=== PATIENT | male | born 1995 | race Hispanic/Latino ===

== ENCOUNTER 2023-12-02 12:13 | Inpatient (IN) | payer SELFPAY ==
[2023-12-02] VITALS (9 sets, daily range): BP systolic 104–131; BP diastolic 65–76
[~2023-12-02] VITALS: Ht 167.6 cm; Wt 74.4 kg
[~2023-12-02 12:13] MED LIST: SEVOFLURANE 250 ML BTL INH ONE
[2023-12-02] MEDS ORDERED: SODIUM CHLORIDE 0.9% 1,000 ML IV PRN (13:45)
[2023-12-02] MEDS ORDERED: KETOROLAC TROMETHAMINE 30 MG/ML VIAL IV ONE (13:45)
[2023-12-02] MEDS ORDERED: ondansetron HCL 4 MG/2 ML VIAL IV ONE (13:45)
[2023-12-02 13:59] LABS: BASOPHILS 0.5 % (0-2); HEMATOCRIT 44.1 % (35.0-50.0); HEMOGLOBIN 15.3 g/dL (12.0-18.0); LYMPHOCYTES 6.4 % (24-44); MCH 30.6 (27-36); MCHC 34.6 g/dl (30-36); MCV 88.4 fl (81-99); MONOCYTES 7.1 % (0-12); PLATELET COUNT 258 K/uL (140-440); RBC 4.99 M/ul (4.3-5.7); RDW 14.2 (10.5-15.0)
[2023-12-02 14:10] LABS: ALBUMIN/GLOBULIN RATIO 0.93 (1.1-2.4); ANION GAP 13.2 (7-21); BILIRUBIN, TOTAL 0.9 ng/dL (0.2-1.0); BUN/CREATININE RATIO 10.52 (6.0-28.6); CALCIUM 9.2 mg/dL (8.5-10.1); CREATININE, SERUM 0.95 mg/dL (0.70-1.30); POTASSIUM 3.2 mmol/L (3.5-5.1); PROTEIN, TOTAL 8.3 g/dL (6.4-8.2)
[2023-12-02] MEDS ORDERED: ondansetron HCL 4 MG/2 ML VIAL IV PRN ×3 (15:30→18:45)
[2023-12-02] MEDS ORDERED: HYDROmorphone HCL 1 MG/ML SYR IV PRN ×2 (15:30→17:00)
[2023-12-02] MEDS ORDERED: PIPERACILLIN/TAZOBACTAM 3.375 GM in DEXTROSE 5% 100 ML IV ONE (15:30)
[2023-12-02] MEDS ORDERED: LACTATED RINGER'S 1,000 ML IV SCH (15:30)
--- NOTE | 2023-12-02 16:20 | NUR ---
PT ARRIVED TO MS ROOM 114 VIA STRETCHER. PT ABLE TO WALK TO BED WITHOUT DIFFICULTY. INTERPRETOR USED FOR ADMISSION ASSESSMENT. BOSS AT BEDSIDE. PT RATES RLQ PAIN 5/10, TOLERABLE. REFUSED MEDICATION. ORIENTED TO CALL LIGHT. ABD TENDER, ACTIVE IN ALL QUADRANTS.
[2023-12-02] MEDS ORDERED: ENOXAPARIN SODIUM 40 MG/0.4 ML SYR SUB-Q SCH (16:50)
[2023-12-02] MEDS ORDERED: PANTOPRAZOLE SODIUM 40 MG/10 ML VIAL IV SCH (16:50)
[2023-12-02] MEDS ORDERED: PROCHLORPERAZINE EDISYLATE 10 MG/2 ML VIAL IV PRN ×2 (17:00→18:45)
[2023-12-02] MEDS ORDERED: DEXTROSE 5% - LACTATED RINGERS 1,000 ML IV SCH (17:00)
[2023-12-02] MEDS ORDERED: HYDROCODONE/ACETA 5/325 TAB PO PRN (17:00)
[2023-12-02] MEDS ORDERED: SUCCINYLCHOLINE IN 0.9% NACL 200 MG/10 ML SYRINGE ONE ×2 (17:18→18:57)
[2023-12-02] MEDS ORDERED: DEXAMETHASONE SOD PHOS 4 MG/ML VIAL ONE (17:18)
[2023-12-02] MEDS ORDERED: LACTATED RINGER'S 1,000 ML IV ONE ×2 (17:18→18:39)
[2023-12-02] MEDS ORDERED: propofoL 200 MG/20 ML VIAL ONE (17:18)
[2023-12-02] MEDS ORDERED: KETOROLAC TROMETHAMINE 30 MG/ML VIAL ONE (17:18)
[2023-12-02] MEDS ORDERED: ROCURONIUM BROMIDE 50 MG/5 ML SYR ONE (17:18)
[2023-12-02] MEDS ORDERED: ondansetron HCL 4 MG/2 ML VIAL ONE (17:18)
[2023-12-02] MEDS ORDERED: SUGAMMADEX SODIUM 200 MG/2 ML ML ONE (17:18)
[2023-12-02] MEDS ORDERED: METOCLOPRAMIDE HCL 10 MG/2 ML SDV ONE (17:18)
[2023-12-02] MEDS ORDERED: MIDAZOLAM HCL 2 MG/2 ML VIAL ONE (17:19)
[2023-12-02] MEDS ORDERED: FAMOTIDINE 20 MG/ 2 ML VIAL ONE (17:19)
[2023-12-02] MEDS ORDERED: fentaNYL citrate 100 MCG/2 ML VIAL ONE (17:19)
[2023-12-02] MEDS ORDERED: LIDOCAINE HCL 4% 5 ML AMP ONE (17:19)
--- NOTE | 2023-12-02 17:30 | NUR ---
THIS RN AND JAVI LAMAR IN ROOM TO PERFORM DRESSING CHANGE AFTER PT SHOWER. AFTER PT WASHED LEGS BACTROBAN WAS APPLIED TO BLE, ADAPTIC WAS APPLIED, COVERED WITH ABD PADDING, WRAPPED IN KRELEX. STOCKINETS IN PLACE. PT REFUSED YELLOW GRIPPER SOCKS AT THIS TIME.
[2023-12-02] MEDS ORDERED: NALOXONE HCL 0.4 MG SYR IV PRN (18:45)
[2023-12-02] MEDS ORDERED: fentaNYL citrate 50 MCG/ML SDV IV PRN (18:45)
[2023-12-02] MEDS ORDERED: droPERidol 5 MG/2 ML VIAL IV PRN (18:45)
[2023-12-02] MEDS ORDERED: IBLOOD GLUCOSE TEST STRIP 1 EA TEST VI PRN (18:45)
[2023-12-02] MEDS ORDERED: MORPHINE SULFATE 10 MG/ML VIAL IV PRN (18:45)
[2023-12-02] MEDS ORDERED: METOCLOPRAMIDE HCL 10 MG/2 ML SDV IV PRN (18:45)
[2023-12-02] MEDS ORDERED: SEVOFLURANE 250 ML BTL ONE (18:54)
--- NOTE | 2023-12-02 19:22 | NUR ---
RECEIVED REPORT FROM JAVI CHAIDEZ. PT NOT IN ROOM-IN OR. WHITE BOARD UPDATED.
--- NOTE | 2023-12-02 19:56 | CONS ---
[facility] [address], [place] [address] Signed DATE OF CONSULTATION: 12/02/2023 CHIEF COMPLAINT: Right lower quadrant abdominal pain. HISTORY OF PRESENT ILLNESS: Lilliam is a 28-year-old English-speaking gentleman from [facility]. 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 About a day and half maybe two days ago, he started to develop lower abdominal pain. It has become more localized to the right lower quadrant. He has had some anorexia and nausea. He came to the emergency room for evaluation. He is not systemically ill or toxic. His vital signs are unremarkable. He has localized peritonitis below and slightly lateral to McBurney's point. The white blood cell count is elevated. CT scan shows the dilated appendix with some extensive periappendiceal inflammation, maybe some fluid. Also, he has a little hepatic steatosis and some early diverticulosis. I was asked to see him as a general surgeon on-call. He was given Zosyn. We moved him from the ER down to our regular medical floor. His friend is with him as well. His and two children are back in [facility]. PAST MEDICAL HISTORY: Diverticulosis. PAST SURGICAL HISTORY: None. SOCIAL HISTORY: He smokes about one cigarette a day. He likes to have a couple of beers every day. He works in construction. He has no primary care provider. He has no preferred pharmacy. He has a friend Alex Ahuja at [phone]. He currently lives in [place], [place]. FAMILY HISTORY: None. REVIEW OF SYSTEMS: He had 10 systems reviewed. No new findings. ALLERGIES: None. MEDICATIONS: None. PHYSICAL EXAMINATION: Electronically Signed By: JONNA HAYDEN MD 12/02/231955 PATIENT NAME: LILLIAM CHEW CONSULTATION DATE OF : [birth year] REPORT #: [id number] PHYSICIAN: JONNA HAYDEN MD PCP: NO PRIMARY CARE PHYSICIAN REPORT IS CONFIDENTIAL AND NOT TO BE RELEASED WITHOUT AUTHORIZATION [facility] [address], [place] [address] Signed VITAL SIGNS: His blood pressure is 121/81, heart rate 90, respiratory rate 16, temperature is 98.2. He is 96% on room air. He is 5 feet 6 inches tall, 74 kg with a body mass index of 29. GENERAL: Lilliam is a 28-year-old gentleman who is lying supine initially in the ER bed and then I followed him down here to the MedSur floor. He does not appear systemically ill or toxic. His friend is with him and along with a couple of our nurses. LUNGS: Clear to auscultation. HEART: Regular rate and rhythm without murmurs. ABDOMEN: [id number] protuberant. Generally soft, but he got localized peritonitis slightly below and lateral to McBurney's point. LABORATORY DATA: His white blood cell count is 16.5, hemoglobin 15, neutrophils 86. Electrolytes unremarkable. Albumin is 4.3. RADIOGRAPHIC STUDIES: CT scan of the abdomen and pelvis were reviewed including the report and the images, indeed he has a dilated appendix with extensive periappendiceal inflammation and some fluid. The radiologist mentions hepatic steatosis and some very minimal diverticulosis. ASSESSMENT AND PLAN: Lilliam is a 28-year-old gentleman, who presents with acute appendicitis. I brought with me a brochure written in Bangladeshi. We looked that very carefully page by page with the help of his friend interpreting. Although Lilliam actually understood Bangladeshi quite well. He understands the location of the appendix. He understands laparoscopic versus open appendectomy. He knows that 2% may be 3% of the time we have to convert to open to get the appendix out. People generally stay in the hospital a few days depending on their postop course. There is risk including, but not limited to bleeding, infection, scarring, change in contour of the skin, damage to bowel, appendiceal stump leak, postoperative intraabdominal abscess, incisional hernias and other unforeseen comorbidities. He has expressed understanding and would like to proceed with surgery. Jonna Hayden MD [facility]/MODL /[id number] Electronically Signed By: JONNA HAYDEN MD 12/02/231955 PATIENT NAME: LILLIAM CHEW CONSULTATION DATE OF : [birth year] REPORT #: [id number] PHYSICIAN: JONNA HAYDEN MD PCP: NO PRIMARY CARE PHYSICIAN REPORT IS CONFIDENTIAL AND NOT TO BE RELEASED WITHOUT AUTHORIZATION [facility] [address] [place] [id number] Signed cc: Jonna Hayden MD Copies: JONNA HAYDEN MD ~ Electronically Signed By: JONNA HAYDEN MD 12/02/23 1956 PATIENT NAME: CHIRAG LILLIAM HARVEY CONSULTATION DATE OF : [birth year] REPORT #: [id number] PHYSICIAN: JONNA HAYDEN MD PCP: NO PRIMARY CARE PHYSICIAN REPORT IS CONFIDENTIAL AND NOT TO BE RELEASED WITHOUT AUTHORIZATION
[2023-12-02] MEDS ORDERED: CEFEPIME HCL/D5W 1 GM/100 ML PIGGYBACK IV SCH (20:00)
--- NOTE | 2023-12-02 20:23 | NUR ---
12/02/232022 Frederick Leyva7-PT ARRIVED TO PACU WITH OPA AND NPA IN PLACE ON 10L/M. PT REQUIRING JAW THRUST FOR ADAQUATE VENTILATION. PT NON-RESPONSIVE TO TACTILE STIMULI.
--- NOTE | 2023-12-02 20:40 | NUR ---
PT ADMITTED TO ROOM VIA HOSPITAL BED. FAMILY/FRIENDS AT BEDSIDE. REPORT RECEIVED FROM BRIJESH. VSS. PT ON 2L O2 N/C. DENIES PAIN. LSC. HRR. BT HYPO. ABD SOFT AND NON-TENDER. DENIES NAUSEA. WATER PROVIDED, INSTRUCTED TO GO SLOW. MIDLINE ABD INC CDI, RUQ DRSG CDI. SCD'S ON. IVF INFUSING, ATB STARTED PER EMAR. CALL LIGHT WITHIN REACH.
--- NOTE | 2023-12-02 21:57 | NUR ---
PT RESTING COMFORTABLY. DENIES PAIN. VSS. REQUESTED MORE WATER AND PT PROVIDED WITH CHICKEN BROTH WELL. FAMILY/FRIENDS STILL AT BEDSIDE.
--- NOTE | 2023-12-02 22:54 | NUR ---
AWAKE, DENIES PAIN. TOLERATED WATER AND CHICKEN BROTH. CALL LIGHT WITHIN REACH.
[2023-12-03] VITALS (12 sets, daily range): BP systolic 109–142; BP diastolic 62–95
--- NOTE | 2023-12-03 00:59 | NUR ---
PT SLEEPING SOUNDLY. IV ATB COMPLETE, IVF INFUSING PER EMAR. CALL LIGHT WITHIN REACH.
--- NOTE | 2023-12-03 02:43 | NUR ---
pt ambulated to BR w/ SBA for IV pole management. Voids WNL. Denies pain. Abd drsgs CDI. IV ATB infusing per EMAR. Call light within reach.
[2023-12-03 02:44] LABS: BILIRUBIN, URINE NEGATIVE (negative); BLOOD/HGB, URINE NEGATIVE (Negative); KETONE, URINE NEGATIVE (Negative); LEUK ESTERASE, URINE NEGATIVE (negative); NITRITE, URINE NEGATIVE (negative)
--- NOTE | 2023-12-03 04:23 | NUR ---
PT SLEEPING SOUNDLY. APPEARS COMFORTABLE. RA, SATS 98%.
[2023-12-03 05:49] LABS: BASOPHILS 0.3 % (0-2); HEMATOCRIT 39.1 % (35.0-50.0); HEMOGLOBIN 13.2 g/dL (12.0-18.0); LYMPHOCYTES 7.4 % (24-44); MCH 30.5 (27-36); MCHC 33.8 g/dl (30-36); MCV 90.2 fl (81-99); NEUTROPHILS 85.3 % (39-80); PLATELET COUNT 215 K/uL (140-440); RBC 4.33 M/ul (4.3-5.7); RDW 14.2 (10.5-15.0)
--- NOTE | 2023-12-03 05:50 | NUR ---
PT AWAKE, REPORTS 3/ ABD PAIN-MEDICATED W/ PRN NORCO. PT REQUESTED ICE WATER AND BROTH-PROVIDED. IVF INFUSING. CALL LIGHT WITHIN REACH.
--- NOTE | 2023-12-03 06:01 | OR ---
[facility] [address] [place], [place] [address] Signed DATE OF OPERATION: 12/02/2023 SURGEON: Jonna Hayden MD PREOPERATIVE DIAGNOSIS: Acute appendicitis. POSTOPERATIVE DIAGNOSIS: Acute appendicitis. PROCEDURE: Laparoscopic converted open appendectomy. ESTIMATED BLOOD LOSS: None. FINDINGS: Lilliam indeed had his appendix densely adherent to the retroperitoneum just as the base of the appendix joining the cecum. It was not possible to separate that with laparoscopic instruments. We converted to open and even then it was very difficult. We had to work very slowly. Consequently, we had converted to an open procedure and had a second nurse scrub in. 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 For about two days, he has had increasing right lower quadrant abdominal pain. In fact, it is actually a bit lateral and a bit posterior. He has had anorexia and nausea, but no vomiting. He finally came to emergency room for evaluation. He did not look systemically ill or toxic. His vital signs were fine. His white count was elevated at 16.5. The CT scan of abdomen and pelvis showed his dilated appendix with extensive inflammatory changes around that area and possibly some fluid collection along with some hepatic steatosis and some early diverticulosis. He had been given Zosyn and Flagyl and I was asked to see him as a general surgeon on-call. I met with Lilliam and his friend. I brought a brochure with me written in Kenyan. Lilliam does not speak much Kenyan, but I think he understood actually quite well as he went through the brochure page by page and we looked at each picture very carefully. He understands that laparoscopic surgery is usually done with three incisions and about 3% time we convert to an open. I had warned him that he may be one of those individuals knowing that we could see the appendix along the retroperitoneum on the CT scan and he had so much inflammation. He understands there is risk to the surgery including, but not limited to bleeding, Electronically Signed By: JONNA HAYDEN MD 12/03/23 0601 PATIENT NAME: LILLIAM CHEW OPERATIVE REPORT DATE OF : [birth year] REPORT #: [id number] PHYSICIAN: JONNA HAYDEN MD PCP: NO PRIMARY CARE PHYSICIAN REPORT IS CONFIDENTIAL AND NOT TO BE RELEASED WITHOUT AUTHORIZATION [facility] [address] [place] [id number] Signed infection, scarring, change in contour of the skin, damage to bowel, appendiceal stump leak, postoperative intraabdominal abscess, incisional hernias and other unforeseen comorbidities. He had expressed understanding and he wished to proceed. DESCRIPTION OF PROCEDURE: Lilliam was taken to the operating room and placed in the supine position under general endotracheal tube anesthesia. He was already on Zosyn and Flagyl. He was given Lovenox and SCDs were in place. A Reyes catheter was inserted without difficulty with return of clear yellow urine. He had been prepped and draped in the usual sterile fashion. We placed our laparoscopic trocars under direct visualization without difficulty. It took a few minutes to move the ileum away and with our 30-degree scope. We could simply not free up the base of the appendix that was joining the cecum. It was quite clear that it was unbelievably densely adherent to the retroperitoneum. We really could not visualize a plane in that area. We therefore converted to open. At this point, we had removed all the laparoscopic trocars. We closed the right subcostal trocar with our laparoscopic suturing device with 0-Vicryl suture. We then extended our periumbilical incision vertically slightly wider than with my hand. With a second nurse scrubbed in, we were able to put two retractors in and multiple laps to hold the small bowel back in out away along with the cecum. We worked our way down the hole and followed the appendix down along with the anterior teniae coli. I did free up a little bit of the cecum along the white line of Toldt to work my way towards the base of the appendix and just very carefully worked the base of the appendix up enough that I could pass a p.r.n. clamp across the appendix at the cecum. The appendix was sharply divided and we secured the appendiceal stump with an 0 Vicryl tie. The appendiceal stump was lightly cauterized. I then worked from the tip of the appendix down and divided the mesoappendix with three bites of the p.r.n. clamps and the 0 Vicryl ties. There was excellent hemostasis. We did not see an abscess cavity. There was no obvious leakage. We went and irrigated that whole area copiously with warm saline solution and suctioned that out until clear. We then removed all our laps and the count was correct. We then closed his midline with interrupted [id number] #1 PDS sutures. We injected local anesthetic in the abdominal wall along with subcutaneous tissues at the midline, the suprapubic trocar site and the right subcostal trocar site. We irrigated each of the three wounds. We then brought the dermis together with interrupted 3-0 subcuticular Monocryl sutures on all three incisions. We used daniella to bring the skin back together at the suprapubic incision in the periumbilical incision. It was not required on the right subcostal incision. Dry gauze and tape was then applied to all three incisions. We then removed his Reyes catheter without difficulty. He was awakened from his anesthesia, extubated in the OR, and taken to recovery room in stable condition. Electronically Signed By: JONNA HAYDEN MD 12/03/23 0601 PATIENT NAME: CHIRAG HARVEYLILLIAM OPERATIVE REPORT DATE OF : [birth year] REPORT #: [id number] PHYSICIAN: JONNA HAYDEN MD PCP: NO PRIMARY CARE PHYSICIAN REPORT IS CONFIDENTIAL AND NOT TO BE RELEASED WITHOUT AUTHORIZATION [address] [address] Signed MD [facility]/MODL /[id number] cc: Patient chart Jonna Hayden MD Copies: JONNA HAYDEN MD ~ Electronically Signed By: JONNA HAYDEN MD 12/03/23 0601 PATIENT NAME: CHIRAG WESLILLIAM OPERATIVE REPORT DATE OF : [birth year] REPORT #: [id number] PHYSICIAN: JONNA HAYDEN MD PCP: NO PRIMARY CARE PHYSICIAN REPORT IS CONFIDENTIAL AND NOT TO BE RELEASED WITHOUT AUTHORIZATION
[2023-12-03 06:03] LABS: ANION GAP 11.8 (7-21); BUN/CREATININE RATIO 10.52 (6.0-28.6); CALCIUM 8.8 mg/dL (8.5-10.1); CREATININE, SERUM 0.76 mg/dL (0.70-1.30); MAGNESIUM 2.1 mg/dL (1.8-2.4); PHOSPHORUS, INORGANIC 3.4 mg/dL (2.5-4.9); POTASSIUM 3.8 mmol/L (3.5-5.1)
[2023-12-03] MEDS ORDERED: ACETAMINOPHEN 500 MG TAB PO PRN (06:30)
[2023-12-03] MEDS ORDERED: OXYCODONE HCL 5 MG TAB PO PRN (06:30)
--- NOTE | 2023-12-03 07:15 | NUR ---
REPORT RECEIVED FROM BAIT PAINTER RN ISIDORO. PATIENT SPOKE WITH HIS PHONE AND TRANSLATING. PATIENT STATED NO NEEDS AT THIS TIME. CALL LIGHT AND PERSONAL BELONGINGS ARE WITHIN REACH.
--- NOTE | 2023-12-03 08:00 | NUR ---
In with pt in response to IV pump alarm. Pt is resting in bed, awake and alert, just returned from the toilet. Pt used his phone to translate to tell me that he went to the bathroom. Pt states he is having a little pain in his abdomen. SCD's reconnected, CPOX reconnected, IV pump restarted (occluded at pt side), Pt declines warm blanket. Primary RN, Ambar, notified of the above. Pt voided 800ml clear brooks colored urine.
--- NOTE | 2023-12-03 08:23 | NUR ---
UR CLINICAL REVIEW: [facility]-MEETS CRITERIA FOR APPENDECTOMY, VARIANCE FOR DAY 2 CRITERIA ENTERED SELF-PAY, MEDICAID APPLICATION PENDING OBS 12/02/23 @ 1528 ORDER MATCHES REG NO AUTH REQUIRED, SELF PAY. PLAN TO RETURN HOME AT [place]. 12/04/23
--- NOTE | 2023-12-03 08:27 | NUR ---
SPOKE WITH LADARIUS IN ELIGIBILITY FOR MEDICAID AND SHE STATES APPLICATION IS PENDING.
--- NOTE | 2023-12-03 08:57 | NUR ---
In with pt for pain med administration for c/o abdominal pain after getting up to void earlier this shift. Pt rates his pain a 3 out of 10. IV cefepime also hung and started at this time. Primary RN notified.
--- NOTE | 2023-12-03 09:01 | NUR ---
RECEIVED CALL FROM LADARIUS, PATIENT IS INELIGIBLE FOR MEDICAID. WILL PROVIDE FINANCIAL ASSISTANCE INFORMATION IN IRISH, IF AVAILABLE IN IRISH.
--- NOTE | 2023-12-03 09:41 | NUR ---
PATIENT IS LYING IN BED AND SPEAKING ON THE PHONE. CALL LIGHT AND PERSONAL BELONGINGS ARE WITHIN REACH.
--- NOTE | 2023-12-03 10:17 | NUR ---
PATIENT IN BED AT THIS TIME. SPINNER TENDER CHARTED VITALS AND I&O'S. CALL LIGHT WITHIN REACH, NO FURTHER NEEDS AT THIS TIME.
--- NOTE | 2023-12-03 10:29 | NUR ---
MED REC COMPLETE
--- NOTE | 2023-12-03 10:50 | NUR ---
0900 MEDICATIONS ADMINISTERED PER THE EMAR. FULL ASSESSMENT COMPLETE AND DOCUMENTED IN THE CHART. MUNIR ([id number]), FISCAL SERVICES MANAGER USED THROUGHOUT PATIENT INTERACTION. PATIENT IS ALERT AND ORIENTED TIMES FOUR. PATIENT IS ON ROOM AIR WITH THE CPOX AT THE BEDSIDE. LUNG SOUNDS ARE CLEAR BILATERALLY IN ALL LUNG BOYLE. CARDIAC WITH NORMAL S1 AND S2 ON AUSCULTATION. RADIAL PULSES ARE STRONG BILATERALLY. BOWEL TONES ARE ACTIVE IN ALL FOUR QUADRANTS. PATIENT IS ON A CLEAR LIQUID DIET. ABDOMEN IS MILDLY DISTENDED AND TENDER TO PALPATION. MIDLINE ABDOMINAL INCISION AND RUQ INCISION WITH DRY DRAINAGE NOTED. SENSATION INTACT WITH NO COMPLAINTS OF NUMBNESS AND TINGLING. PATIENT RATED PAIN 3/10 IN THE ABDOMEN. PATIENT IS NOT REQUESTING ANY PAIN MEDICATION AT THIS TIME. PATIENT WITH SCDS IN PLACE. PATIENT IS ON A 1,000 ML FLUID RESTRICTION. IV SITE FLUSHED WITH 10 ML NORMAL SALINE. IV DRESSING IS CLEAN, DRY, AND INTACT. FLAGYL AND CEFEPIME ARE INFUSING AT THIS TIME. PATIENT STATED NO FURTHER NEEDS AT THIS TIME. CALL LIGHT AND PERSONAL BELONGINGS ARE WITHIN REACH.
--- NOTE | 2023-12-03 11:55 | NUR ---
Spoke with city assessor [phone]. Pt lives in a mobile home, alone. He denies needs. No issues getting in or out of his home. His friend Alex will assist him as needed. Pt does not qualify for the OHP and a financial assist form by Brenda. Pt does not have food stamps or use the food bank. He denies need for this. He was asked, but does not state where he works. He denies any needs. Pt will dc to home when cleared for DC. Chart was added to the CM form for the clinic to have a assigned for a fu visit on dc. Pt will accept pcp from any clinic. The physician clinic is the only clinic with openings at this time.
--- NOTE | 2023-12-03 11:58 | NUR ---
SECOND BAG OF FLAGYL STARTED AT THIS TIME. SCDS IN PLACE. PATIENT STATED BURNING WITH URINATION. PATIENT STATED THIS WAS NOT NORMAL. PATIENT STATED NO FURTHER QUESTIONS OR CONCERNS. PATIENT USED PERSONAL TRANSLATION TO INTERACT WITH RN. PATIENT STATED NO FURTHER NEEDS AT THIS TIME. CALL LIGHT AND PERSONAL BELONGINGS ARE WITHIN REACH.
--- NOTE | 2023-12-03 12:51 | NUR ---
PATIENT IS LYING IN BED AND SPEAKING WITH THREE VISITORS SITTING ON THE COUCH AT THIS TIME. CALL LIGHT AND PERSONAL BELONGINGS ARE WITHIN REACH.
--- NOTE | 2023-12-03 13:15 | NUR ---
1400 CEFEPIME AND PRN OXYCODONE ADMINISTERED PER THE EMAR. PATIENT STATED PAIN WAS A 4/10 IN THE ABDOMEN. PATIENT ABLE TO AMBULATE TO VOID 250 ML URINE. PATIENT STATED ONLY A LITTLE BIT OF BURNING WITH URINATION IN COMPARISON TO THIS MORNING VOID. PATIENT RECONNECTED TO SCD'S. PATIENT WITH TWO GUESTS IN THE ROOM AT THIS TIME. COPYRIGHT CLERK, ANIYAH ([id number]) USED THROUGHOUT THIS PATIENT INTERACTION. PATIENT STATED NO FURTHER NEEDS AT THIS TIME. CALL LIGHT AND PERSONAL BELONGINGS ARE WITHIN REACH.
--- NOTE | 2023-12-03 14:11 | NUR ---
MD NOTIFIED OF THE PATIENTS BURNING WITH URINATION. STATED PATIENT HAD A CATHETER. WITH NO NEW ORDERS AT THIS TIME. CALL ENDED.
--- NOTE | 2023-12-03 14:32 | NUR ---
PT NOT AVAIALBLE FOR VISIT. PROVIDED PRAYER.
--- NOTE | 2023-12-03 14:37 | NUR ---
PATIENT IS LYING IN BED WITH EYES CLOSED AND RESPIRATIONS ARE EVEN AND UNLABORED. CALL LIGHT AND PERSONAL BELONGINGS ARE WITHIN REACH.
--- NOTE | 2023-12-03 15:42 | NUR ---
PATIENT IS SITTING UPRIGHT IN BED. PATIENT FINISHED CHICKEN BROTH AND ONE JELLO. PATIENT WITH NO COMPLAINTS OF PAIN AT THIS TIME AND IS NOT REQUESTING ANY PAIN MEDICATION. PATIENT ABDOMEN DISTENDED AND TENDER TO PALPATION. BOWEL TONES ARE ACTIVE IN ALL FOUR QUADRANTS. MIDLINE ABDOMEN INCISION WITH JOSIAH AND DRY DRAINAGE. LAP SITE IN THE RUQ WITH DRY DRAINAGE NOTED. LADLE REPAIRMAN, PRAVEEN ([id number]) USED THROUGHOUT THIS PATIENT INTERACTION. PATIENT UP TO THE BATHROOM AT THIS TIME. PATIENT INSTRUCTED TO CALL WHEN FINISHED AND THEN WILL WALK IN THE HALLS. PATIENT EXPRESSED UNDERSTANDING. PATIENT STATED NO FURTHER NEEDS AT THIS TIME. CALL LIGHT AND PERSONAL BELONGINGS ARE WITHIN REACH.
--- NOTE | 2023-12-03 15:57 | NUR ---
PATIENT AMBULATED ONE LAP ON THE MEDICAL SURGICAL FLOOR WITH LOTUS ROSEN. PATIENT TOLERATED WELL BUT STATED TO LOTUS IT HURTS TO COUGH. PATIENT IS BACK IN BED WITH CALL LIGHT AND PERSONAL BELONGINGS ARE WITHIN REACH.
--- NOTE | 2023-12-03 16:07 | NUR ---
PT WANTED TO GO ON A WALK. WE DID ONE ROUND AROUND THE NURSING STATION. PT WANTED TO BACK TO BED AND LAY DOWN PT DIDNT NEED ANYTHING ELSE AND CALL LIGHT IS WITHIN REACH.
--- NOTE | 2023-12-03 17:42 | NUR ---
VITAL SIGNS TAKEN AND DOCUMENTED IN THE CHART. INTAKE AND OUTPUT DOCUMENTED IN THE CHART. IV PUMP CLEARED. PATIENT GIVEN FRESH CHICKEN BROTH AND A JELLO. PATIENT ENCOURAGED TO EAT. PATIENT RATED PAIN 4/10 IN THE ABDOMEN. PATIENT GIVEN A TYLENOL FOR PAIN AND THE TEMP OF 99.7 F. PATIENT WITH TWO VISITORS IN THE ROOM. PATIENT HAD VISITOR TRANSLATE AT THIS TIME. PATIENT BOOSTED UP IN BED. PATIENT TOLERATED WELL. PATIENT STATED NO FURTHER NEEDS AT THIS TIME. CALL LIGHT AND PERSONAL BELONGINGS ARE WITHIN REACH.
--- NOTE | 2023-12-03 18:11 | NUR ---
PATIENT IS LYING IN BED AND LOOKING ON THEIR PHONE. PATIENT WITH D5LR INFUSING AT 100 ML/HR. PATIENT STATED NO NEEDS AT THIS TIME, CALL LIGHT AND PERSONAL BELONGINGS ARE WITHIN REACH.
--- NOTE | 2023-12-03 19:05 | NUR ---
pt RESTING IN THE BED WITH EYES CLOSED. RR EVEN AND UNLABORED. BOARD UPDATED. REPORT RECEIVED FROM KJ CALDWELL. CALL LIGHT WITHIN REACH.
--- NOTE | 2023-12-03 20:00 | NUR ---
ASSESSMENT AND VITAL SIGNS DONE. pt C/O 03/28 PAIN. pt DENIES ANY NEEDS FOR PRN PAIN MEDICATION. BOWEL TONES ACTIVE. MIDLINE WITH JOSIAH, CDI. LAP SITE CDI. SCDS ON. pt DENIES ANY OTHER NEEDS AT THIS TIME. CALL LIGHT WITHIN REACH.
--- NOTE | 2023-12-03 22:00 | NUR ---
pt RESTING IN THE BED WITH EYES CLOSED. RR EVEN AND UNLABORED. CALL LIGHT WITHIN REACH.
[2023-12-04] VITALS (10 sets, daily range): BP systolic 121–150; BP diastolic 81–92
--- NOTE | 2023-12-04 00:03 | NUR ---
pt CALLED FOR HIS IV PUMP ALARMING. IV ABX FINISHED. pt DENIES ANY OTHER NEEDS AT THIS TIME. CALL LIGHT WITHIN REACH.
--- NOTE | 2023-12-04 02:55 | NUR ---
IN RM TO HANG pt IV ABX. pt C/O 04/25 PAIN. PRN PAIN MEDICATION ADMINISTERED. pt DENIES ANY OTHER NEEDS AT THIS TIME. CALL LIGHT WITHIN REACH.
--- NOTE | 2023-12-04 04:30 | NUR ---
pt RESTING IN THE BED. POWER SAW OPERATOR IN RM TO DO VITAL SIGNS. ASSESSMENT DONE. pt DENIES ANY OTHER NEEDS AT THIS TIME. CALL LIGHT WITHIN REACH.
--- NOTE | 2023-12-04 04:32 | NUR ---
CALL LIGHT ANSWERED. PT NEEDED TO USE BATHROOM. ELECTROMATIC TYPIST ASSISTED PT TO BATHROOM. PT VOIDED AND WAS ASSISTED BACK TO BED. ELECTROMATIC TYPIST THEN OBTAINED AND DOCUMENTED VITALS AND I&O. PT STATES NO FURTHER NEEDS AT THIS TIME. CALL LIGHT WITHIN REACH AND SCDS BACK ON.
--- NOTE | 2023-12-04 06:40 | NUR ---
pt RESTED THROUGOUT THE NIGHT. PRN PAIN MEDICATION ADMINISTERED WHEN NEEDED. IVF INFUSING PER ORDER. MIDLINE INTACT, CDI. BOWEL TONE ACTIVE. NO OTHER CONCERNS AT THIS TIME.
--- NOTE | 2023-12-04 07:12 | NUR ---
REPORT RECEIVED FROM RUBBER HEEL AND SOLE PRESS TENDER RN KULDIP. PATIENT IS LYING IN BED AND SPEAKING ON THE PHONE. PATIENT STATED NO NEEDS AT THIS TIME. CALL LIGHT AND PERSONAL BELONGINGS ARE WITHIN REACH.
--- NOTE | 2023-12-04 07:58 | NUR ---
UR CLINICAL REVIEW: [facility]-MEETS CRITERIA FOR APPENDECTOMY, VARIANCE FOR DAY 2 CRITERIA ENTERED SELF-PAY, INELIGIBLE FOR MEDICAID OBS 12/02/23 @ 1528 ORDER MATCHES REG NO AUTH REQUIRED, SELF PAY. [place] 12/05/23
--- NOTE | 2023-12-04 08:03 | NUR ---
MESSAGE LEFT FOR DR. HAYDEN TO VERIFY IF PATIENT WILL REMAIN OBS OR CHANGE TO INPT.
--- NOTE | 2023-12-04 08:22 | NUR ---
PATIENT IN BED AT THIS TIME. CONSULTANT ELECTRONICS WENT TO ROUND ON PATIENT. CALL LIGHT WITHIN REACH, NO FURTHER NEEDS AT THIS TIME.
[2023-12-04] MEDS ORDERED: PANTOPRAZOLE SODIUM 40 MG TABEC PO SCH (09:00)
--- NOTE | 2023-12-04 09:05 | NUR ---
0800 AND 0900 MEDICATIONS ADMINISTERED PER THE EMAR. PATIENT AMBULATED TO THE BATHROOM AND VOID 450 ML URINE. PATIENT BREAKFAST TRAY IS AT THE BEDSIDE. SCDS IN PLACE BUT NOT ON AT THIS TIME. PATIENT IS REQUESTING TO WALK IN THE HALLS IN AN HOUR. DOCKETING SPECIALISTBERNIE ([id number]) USED THROUGHOUT THE PATIENT INTERACTION. PATIENT STATED NO FURTHER NEEDS AT THIS TIME. CALL LIGHT AND PERSONAL BELONGINGS ARE WITHIN REACH.
--- NOTE | 2023-12-04 09:18 | NUR ---
EFREN HAYDEN/Alfredo QUINTERO, RN, TO CHANGE PATIENT TO INPT STATUS
--- NOTE | 2023-12-04 10:11 | NUR ---
PATIENT IN BED AT THIS TIME. CONTACT OFFICER CHARTED PATIENTS VITALS AND I&O'S. CALL LIGHT WITHIN REACH, NO FURTHER NEEDS AT THIS TIME.
--- NOTE | 2023-12-04 10:24 | NUR ---
PT NOT AVAILABLE FOR VISIT. PROVIDED PRAYER.
--- NOTE | 2023-12-04 10:51 | NUR ---
PATIENT IS LYING IN BED AND LOOKING ON THEIR PHONE. PATIENT STATED NO FURTHER NEEDS AT THIS TIME. CALL LIGHT AND PERSONAL BELONGINGS ARE WITHIN REACH.
--- NOTE | 2023-12-04 11:25 | NUR ---
PATIENT IS LYING IN BED WITH HOB ELEVATED. FULL ASSESSMENT COMPLETE AND DOCUMENTED IN THE CHART. PATIENT IS ALERT AND ORIENTED TIMES FOUR. PATIENT IS ON ROOM AIR WITH NO COMPLAINTS OF SOB. LUNG SOUNDS ARE CLEAR IN THE UPPER LOBES BILATERALLY WITH CRACKLES IN THE BASES BILATERALLY. CPOX AT THE BEDSIDE. CARDIAC WITH NORMAL S1 AND S2 ON AUSCULTATION. RADIAL AND PEDAL PULSES ARE STRONG BILATERALLY. CAPILLARY REFILL IN THE UPPER AND LOWER EXTREMITIES IS LESS THAN 3 SECONDS BILATERALLY. ABDOMEN WITH MILD DISTENTION AND TENDER TO PALPATION. BOWEL TONES ARE FAINT BUT ACTIVE IN ALL FOUR QUADRANTS. PATIENT IS ON A FULL LIQUID DIET WITH NO COMPLAINTS OF NAUSEA OR VOMITING. SENSATION INTACT WITH NO COMPLAINTS OF NUMBNESS AND TINGLING. PATIENT WITH NO COMPLAINTS OF PAIN. PATIENT IS A SBA AND UP TO THE BATHROOM. SCDS ARE IN THE ROOM. LAST BM WAS 12/02/23. ABDOMINAL MIDLINE INCISION WITH JOSIAH AND DRY DRAINAGE NOTED. RUQ INCISION WITH DRY DRAINAGE NOTED. PATIENT USED HIS PHONE FOR TRANSLATION THROUGHOUT THE PATIENT INTERACTION. PATIENT STATED NO FURTHER NEEDS AT THIS TIME. CALL LIGHT AND PERSONAL BELONGINGS ARE WITHIN REACH.
--- NOTE | 2023-12-04 12:04 | NUR ---
PATIENT IS AMBULATING IN THE HALLWAYD WITH LOTUS ROSEN. PATIENT TOLERATING WELL WITH NO NEEDS AT THIS TIME.
--- NOTE | 2023-12-04 12:18 | NUR ---
TOOK PT ON A WALK AND DID 2 LAPS AROUND THE NURSING STATION PT WANTED TO GO BACK TO BED AND WANTED FRESH WATER. GOT PT HIS FRESH WATER AND PT DIDNT NEED ANYTHING ELSE. CALL LIGHT IS WITHIN REACH.
--- NOTE | 2023-12-04 12:23 | NUR ---
PATIENT WALKING AT THIS TIME. LOAN OPERATIONS MANAGER PROVIDED PATIENT WITH FRESH LINENS. CALL LIGHT WITHIN REACH, NO FURTHER NEEDS AT THIS TIME.
--- NOTE | 2023-12-04 13:54 | NUR ---
PT RESTING IN BED, HOLDING ONTO THE BED RAILS, ASKED IF IN PAIN, STATES 2/10. OFFERED TYLENOL OR OXYCODONE AND PATIENT REQUESTED THE OXYCODONE. IV FLUID BAG CHANGED OVER - SEE APR. PT DENIES ANY FURTHER NEEDS AT THIS TIME, CALL LIGHT WITHIN REACH.
--- NOTE | 2023-12-04 14:24 | NUR ---
PT IV ABX STARTED - SEE APR. PT RESTING IN BED, BACK IN BED FROM URINATING IN THE BATHROOM. PT DENIES ANY FURTHER NEEDS AT THIS TIME.
--- NOTE | 2023-12-04 15:37 | NUR ---
PATIENT IN BED AT THIS TIME. STATISTICAL ANALYST DID HOURLY ROUNDS ON PATIENT. CALL LIGHT WITHIN REACH, NO FURTHER NEEDS AT THIS TIME.
--- NOTE | 2023-12-04 15:55 | NUR ---
PATIENT IS LYING IN BED AND LOOKING ON THEIR PHONE. EDITOR DEPARTMENT, MARIMAR ([id number]) USED THROUGHOUT THE PATIENT INTERACTION. PATIENT WITH NO COMPLAINTS OF PAIN WHEN ASKED BY RN. BOWEL TONES ARE ACTIVE IN ALL FOUR QUADRANTS. PATIENT IS ON A FULL LIQUID DIET. ABDOMEN WITH MILD DISTENTION AND TENDER TO PALPATION. IV SITE IN THE LAC FLUSHED WITH 10 ML NORMAL SALINE. IV DRESSING IS CLEAN, DRY, AND INTACT. D5LR IS INFUSING AT 75 ML/HR AND ZOSYN IS INFUSING AT 25 ML/HR. PATIENT STATED NO FURTHER NEEDS AT THIS TIME. CALL LIGHT AND PERSONAL BELONGINGS ARE WITHIN REACH.
--- NOTE | 2023-12-04 16:34 | NUR ---
PATIENT IS LYING IN BED AND LOOKING ON THEIR PHONE. PATIENT STATED "ESTA CEZAR". PATIENT STATED NO FURTHER NEEDS AT THIS TIME. CALL LIGHT AND PERSONAL BELONGINGS ARE WITHIN REACH.
--- NOTE | 2023-12-04 17:52 | NUR ---
PATIENT IS LYING IN BED WITH HOB ELEVATED AND LOOKING ON THEIR PHONE. AUSTIN IRVING ([id number]) USED THROUGHOUT THE PATIENT INTERACTION. VITAL SIGNS TAKEN AND DOCUMENTED IN THE CHART. PRN TYLENOL ADMINISTERED FR TEMP OF 99.5 F AND PAIN RATED 1/10 IN THE ABDOMEN. PATIENT IV PUMP CLEARED OF INTAKE FLUIDS. PATIENT AMBULATED TO THE BATHROOM AT THIS TIME. PATIENT STATED NO FURTHER NEEDS, CALL LIGHT AND PERSONAL BELONGINGS ARE WITHIN REACH.
--- NOTE | 2023-12-04 18:06 | NUR ---
PATIENT IS LYING IN BED AFTER WALKING TWO LAPS ON THE MEDICAL SURGICAL FLOOR. PATIENT WITH PAIN WHILE COUGHING. PATIENT GIVEN A PILLOW TO HELP BRACE THE ABDOMEN WHILE CHOUGHING. HAT EMPTIED OF 550 ML OF DARK YELLOW URINE. PATIENT STATED NO FURTHER NEEDS AT THIS TIME. CALL LIGHT AND PERSONAL BELONGINGS ARE WITHIN REACH.
--- NOTE | 2023-12-04 20:48 | NUR ---
PATIENT ALERT AND ORIENTED, HE REPORTS NO PAIN OR NAUSEA, HE HAS 4 GUEST IN ROOM AT BEDSIDE. PATIENT HAS NO QUESTIONS OR CONCERNS AT THIS TIME.
--- NOTE | 2023-12-04 20:55 | NUR ---
BEATER BOSS OBTAINED VITALS AND I&O. PT STATES NO FURTHER NEEDS AT THIS TIME. CALL LIGHT WITHIN REACH AND FAMILY IN ROOM.
--- NOTE | 2023-12-04 22:31 | NUR ---
PATIENT REPORTS NO PAIN AT ABD. NO NEEDS AT THIS TIME, HE IS ALERT AND ORIENTED.
--- NOTE | 2023-12-04 22:43 | NUR ---
CALL LIGHT ANSWERED. PT NEEDED TO USE BATHROOM. EXCELSIOR MACHINE OPERATOR SBA PT TO BATHROOM. PT VOIDED AND WAS ASSISTED BACK TO BED. PT STATES NO FURTHER NEEDS AT THIS TIME. CALL LIGHT WITHIN REACH.
[2023-12-05 00:26] VITALS: BP 128/82
[2023-12-05 05:42] VITALS: BP 109/64
--- NOTE | 2023-12-05 05:44 | NUR ---
SUPERVISOR QUALITY CONTROL OBTAINED VITALS AND I&O. PT STATES NO NEEDS AT THIS TIME. CALL LIGHT WITHIN REACH.
[2023-12-05 06:19] VITALS: BP 109/64
--- NOTE | 2023-12-05 06:43 | NUR ---
INTO PATIENT ROOM TO CLEAR IV PUMP. PATIENT RESTING QUIETLY IN BED EYES CLOSED LISTENING TO MUSIC, RESPIRATION REGULAR 18/MIN, NO DISTRESS NOTED.
--- NOTE | 2023-12-05 07:10 | NUR ---
REPORT RECEIVED FROM UPSET WELDING MACHINE OPERATOR RN JUDAH. PATIENT IS LYING IN BED WITH EYES CLOSED AND RESPIRATIONS ARE EVEN AND UNLABORED. CALL LIGHT AND PERSONAL BELONGINGS ARE WITHIN REACH.
--- NOTE | 2023-12-05 07:50 | NUR ---
PATIENT AMBULATEED 3 LAPS ON THE MEDICAL SURGICAL FLOOR WITH LOTUS ROSEN. PATIENT TOLERATED WELL.
--- NOTE | 2023-12-05 08:28 | NUR ---
PATIENT IS LYING IN BED WITH HOB ELEVATED. PATIENT IS LOOKING ON THEIR PHONE. PATIENT STATED NO FURTHER NEEDS AT THIS TIME. CALL LIGHT AND PERSONAL BELONGINGS ARE WITHIN REACH.
--- NOTE | 2023-12-05 08:37 | NUR ---
PATIENT IN BED AT THIS TIME. CALL LIGHT WITHIN REACH, NO FURTHER NEEDS AT THIS TIME.
--- NOTE | 2023-12-05 08:49 | NUR ---
MD ROUNDED WITH THE PATIENT AT THIS TIME. MD STATED TO REMOVED EVERY OTHER STAPLE FROM THE INCISION. MD USED PATIENT PERSONAL PHONE FOR INTERPRETATION. PATIENT STATED NO FURTHER QUESTIONS OR CONCERS. PATIENT WITH NO FURTHER NEEDS AT THIS TIME. CALL LIGHT AND PERSONAL BELONGINGS ARE WITHIN REACH.
[2023-12-05] MEDS ORDERED: DOCUSATE SODIUM 100 MG CAP PO SCH (09:00)
--- NOTE | 2023-12-05 09:33 | NUR ---
PATIENT IS LYING IN BED WITH HOB ELEVATED. LOTUS WELLS IS IN THE ROOM AT THIS TIME. CALL LIGHT AND PERSONAL BELONGINGS ARE WITHIN REACH.
[2023-12-05 09:54] VITALS: BP 129/82
[2023-12-05 10:00] VITALS: BP 129/82
[2023-12-05] MEDS ORDERED: OXYCODONE HCL5 MG PO (10:31)
[2023-12-05] MEDS ORDERED: COLACE100 MG PO (10:32)
[2023-12-05] MEDS ORDERED: AMOX TR-K CLV1 EAC1 PO (10:34)
[2023-12-05] MEDS ORDERED: METRONIDAZOLE500 MG PO (10:35)
--- NOTE | 2023-12-05 10:45 | NUR ---
0900 AND 1200 MEDICATIONS ADMINISTERED PER THE EMAR. FULL ASSESSMENT COMPLETE AND DOCUMENTED IN THE CHART. TRUCK ENGINE TECHNICIAN, DEREJE ([id number]) USED THROUGHOUT THE PATIENT INTERACTION. PATIENT IS ALERT IN BED WITH HOB ELEVATED. PATIENT IS ALERT AND ORIENTED TIMES FOUR. PATIENT IS ON ROOM AIR. LUNG SOUNDS ARE CLEAR IN THE LEFT LUNG THROUGHOUT. RIGHT UPPER LUNG BOYLE ARE CLEAR WITH CRACKLES IN THE BASES. PATIENT WITH NO COMPLAINTS OF SOB. INCENTIVE SPIROMETER IS AT THE BEDSIDE. CARDIAC WITH NORMAL S1 AND S2 ON AUSCULTATION. RADIAL AND PEDAL PULSES ARE STRONG BILATERALLY. ABDOMEN IS DISTENDED AND TENDER TO THE TOUCH. PATIENT IS ON A FULL LIQUID DIET. LAST BM WAS 12/02/23. IV IN THE LAC REMOVED DUE TO PATIENT BEING DISCHARGED. CATHETER TIP INTACT. IV PUMP INTAKE FLUIDS CLEARED. SENSATION INTACT WITH NO COMPLAINTS OF NUMBNESS AND TINGLING. PATIENT RATED PAIN 1/10 IN THE ABDOMEN. PRN OXYCODONE ADMINISTERED PRIOR TO REMOVING JOSIAH. MIDLINE ABDOMINAL INCISION WITH JOSIAH AND DRY DRAINAGE NOTED. RUQ LAP SITE WITH DRY DRAINAGE NOTED. RED BUMP TO THE LEFT OF THE MIDLINE ABDOMINAL INCISION NOTED. MD NOTIFIED THIS MORNING. NO NEW ORDERS. PATIENT STATED NO FURTHER NEEDS AT THIS TIME. CALL LIGHT AND PERSONAL BELONGINGS ARE WITHIN REACH.
[2023-12-05] MEDS ORDERED: metroNIDAZOLE 250 MG TAB PO SCH (12:00)
[2023-12-05] MEDS ORDERED: AMOXICILLIN/CLAVULANATE K 875 MG TAB PO SCH (17:00)
--- NOTE | 2023-12-06 07:56 | DS ---
[facility] [address], [place] [address] Signed ADMISSION DATE: 12/03/2023 DISCHARGE DATE: 12/05/2023 PROCEDURES: 1. Laparoscopic converted to open appendectomy. 2. CT scan of abdomen and pelvis. DIAGNOSIS: Appendicitis. HISTORY OF PRESENT ILLNESS: Rakan is a 28-year-old gentleman, originally from [place]. His and 2 children were still in [place] [facility] [facility]. He is here in [facility] working [employer]. He said he lives alone here in [place], [place]. He developed 2 days of right lower quadrant abdominal pain with nausea. He finally came to emergency room for evaluation. His vital signs were fine. His white count was elevated. He was demonstrating localized peritonitis lateral to McBurney's point. A CT scan of abdomen and pelvis revealed his dilated appendix with extensive inflammation and possibly a phlegmon. I had been asked to see him as a general surgeon on-call. He had received Zosyn and Flagyl in the ER. HOSPITAL COURSE: I met with Rakan that same day and we took him to the operating room for laparoscopic converted to an open appendectomy. Sure enough, base of his appendix was densely adherent posterior to retroperitoneum as it joins the cecum. We simply could not free that up with our laparoscopic instruments. Even with an open procedure, it was quite difficult for me to cauterize through the inflamed tissue with no surgical plane. He has done very well both intraop and postop. It is amazing that he is passing flatus and up to a full liquid diet. He has no nausea or vomiting. His abdomen actually is now soft and flat. He has only taken a little bit of oxycodone. He has mostly used Tylenol. He uses an la on his phone to help translate. We spoke with him in detail today, myself and the nurse. He said he feels very comfortable going home today. DISCHARGE PLANS AND MEDICATIONS: Rakan will be discharged to home with a prescription for oxycodone immediate release 5 mg tablets one p.o. q.6 hours p.r.n. for severe postoperative pain. We will dispense 15 tablets with no refills. He can use Tylenol, ibuprofen or Aleve as needed for [id number] postoperative pain. That can be purchased [id number]. We wrote for Colace 100 mg tablets one p.o. b.i.d. for a week. We will dispense 15 tablets with no refills. We have written for Augmentin 875 mg one p.o. b.i.d. for 7 days and Flagyl 500 mg one p.o. t.i.d. for 7 days. We have advised him not to do any heavy pushing, pulling, or lifting over about 20 pounds. 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 Electronically Signed By: JONNA DOMINIQUE MD 12/06/23 0756 PATIENT NAME: RAKAN CHEW DISCHARGE SUMMARY DATE OF : [birth year] REPORT #: [id number] PHYSICIAN: JONNA DOMINIQUE MD PCP: NO PRIMARY CARE PHYSICIAN REPORT IS CONFIDENTIAL AND NOT TO BE RELEASED WITHOUT AUTHORIZATION [address] [address] Signed He is welcome to perform his activities of daily including walking up and down stairs and showering and bathing as usual as he has done here. We are going to remove every other staple before he is discharged to home. He will follow up in my office in 7 to 10 days to have the rest of his daniella removed. He has expressed understanding, agrees with above plan. Jonna Dominique MD ALB/MODL /[id number] cc: Jonna Dominique MD Patient Chart Copies: JONNA DOMINIQUE MD ~ Electronically Signed By: JONNA DOMINIQUE MD 12/06/23 0756 PATIENT NAME: RAKAN CHEW DISCHARGE SUMMARY DATE OF : [birth year] REPORT #: [id number] PHYSICIAN: JONNA DOMINIQUE MD PCP: NO PRIMARY CARE PHYSICIAN REPORT IS CONFIDENTIAL AND NOT TO BE RELEASED WITHOUT AUTHORIZATION
--- NOTE | 2023-12-08 10:15 | PATH ---
[facility] [address], [place] [address] Signed SPECIMEN(S): A APPENDIX SPECIMEN SOURCE: A. APPENDIX CLINICAL HISTORY: Acute appendicitis FINAL PATHOLOGIC DIAGNOSIS: Appendix: - Acute separative appendicitis with periappendicitis and serositis - Focal mucosal necrosis. JVR MICROSCOPIC EXAMINATION: Histologic sections of all submitted blocks are examined by light microscopy. These findings, together with the gross examination, support the pathologic diagnosis. GROSS DESCRIPTION: The specimen, labeled and designated "Stacy Lr, appendix," is received in formalin and consists of Specimen: Appendix with mesoappendix. Dimensions: 9.0 x 0.9 cm. Serosa: [place]-vigil dusky with focal hemorrhage and white-vigil exudate seen in the mid to distal portion of the appendix. Defect: Not grossly identified. Inking: Margin was cauterized and inked Blue. Mucosa: Red-brown slightly dilated filled with dark brown soft material. Fecalith: Not grossly identified. Additional: None. Joy Operator Helper sections are submitted in (A1). DERICK (under the direct supervision of a pathologist) The Gross Description was prepared using a voice recognition system. The report was reviewed for accuracy; however, sound-alike word errors, addition and/or deletions may occur. If there is any question about this report, please contact Client Services. ADDITIONAL NOTES: Immunohistochemical and/or in situ hybridization studies if performed in this case included appropriate positive controls that reacted as expected. This PATIENT NAME: CHIRAG CLEVELANDMARYLILLIAM PATHOLOGY DATE OF : [birth year] REPORT #: [id number] PHYSICIAN: BRYAN OROZCO PCP: NO PRIMARY CARE PHYSICIAN REPORT IS CONFIDENTIAL AND NOT TO BE RELEASED WITHOUT AUTHORIZATION [facility] [address] [facility] [place] [address] Signed test was developed and its performance characteristics determined by [facility]. It has not been cleared or approved by the U.S. Food and Drug Administration. The FDA has determined that such clearance or approval is not necessary. This test is used for clinical purposes. It should not be regarded as investigational or for research. [facility] is certified under the Clinical Laboratory Improvement Amendments of 1988 (CLIA) as qualified to perform high complexity clinical laboratory testing. PERFORMING LABORATORY: Technical component was performed by [facility], [address] [place] [id number] (CLIA# [id number]). Professional interpretation was performed by [facility] [place] - [address] [place] [place] [address] (CLIA#: [id number]). Diagnostician: Brandon Mosquera MD Pathologist Electronically Signed 12/08/2023 Copies: ~ PATIENT NAME: CHIRAG JENNIFERELLENLILLIAM PATHOLOGY DATE OF : [birth year] REPORT #: [id number] PHYSICIAN: BRYAN PATHOLOGY PCP: NO PRIMARY CARE PHYSICIAN REPORT IS CONFIDENTIAL AND NOT TO BE RELEASED WITHOUT AUTHORIZATION
== END 2023-12-05 11:50 | disposition home or self-care (01) | DRG 399 ==
LOC: ED 12:13 → MS 12:15
PROVIDERS: Emergency Medicine; ADMIT Colon & Rectal Surgery; ATTEND Colon & Rectal Surgery
PROC: 0WJG4ZZ Inspection of Peritoneal Cavity, Percutaneous Endoscopic Approach (ICD-10-PCS; 2023-12-02)
PROC: 0DTJ0ZZ Resection of Appendix, Open Approach (ICD-10-PCS; principal; 2023-12-02 17:26)
DX: K35.80 Unspecified acute appendicitis (principal); K57.90 Diverticulosis of intestine, part unspecified, without perforation or abscess without bleeding; K76.0 Fatty (change of) liver, not elsewhere classified
CPT/HCPCS: 00840; 36415; 74176; 80048; 80053; 81003; 83690; 83735; 84100; 85025; 96366; 96367; 96372; 96374; 96375; 96376; 99285-25; A9270; G0378; J0330; J0692; J1100; J1650; J1885; J2250; J2405; J2470; J2543; J2704; J2765; J3010; J3490; J7030; J7121